=== PATIENT | female | born 1955 | race Caucasian/White ===

== ENCOUNTER 2017-01-12 05:13 | Day surgery (SDC) | payer OTHER ==
[~2017-01-12 05:13] MED LIST: ACET500CAP PO; ALLEGRA180 PO; BIAXIN5 PO; BUSPAR15 M1 PO; ENDOCET1 TAB PO; EYE PO; HALCION0.25 MG PO; HORMONE PELLET SC; KLONO5 PO; LAMICTAL10 PO; LAMICTAL150 MG PO; METHOC500B PO; NASACORTAQ NAS; OS500+D PO; OTC ALLERGY RELIEF PO; PROAIR HFA INH; RISP4 PO; TRAZ50 PO; XANAX1 MG PO
[2017-05-11] MEDS ORDERED: NEUR100 PO (11:02)
[2017-05-11] MEDS ORDERED: ULTRAM50 PO (11:03)
[2017-05-11] MEDS ORDERED: LIOR10 PO (11:03)
[2017-05-11] MEDS ORDERED: VITAMIN D31000 UNIT PO (11:03)
[2017-05-11] MEDS ORDERED: NASACORTAQ NAS (11:04)
== END 2017-01-12 11:22 | disposition home or self-care (01) ==
LOC: SDC 05:13
PROVIDERS: Orthopaedic Surgery
PROC: 3E0R33Z Introduction of Anti-inflammatory into Spinal Canal, Percutaneous Approach (ICD-10-PCS; 2017-01-12)
PROC: B01BYZZ Fluoroscopy of Spinal Cord using Other Contrast (ICD-10-PCS; 2017-01-12)
PROC: 3E0R3BZ Introduction of Anesthetic Agent into Spinal Canal, Percutaneous Approach (ICD-10-PCS; principal; 2017-01-12 07:45)
DX: M54.17 Radiculopathy, lumbosacral region (principal); Z88.0 Allergy status to penicillin; Z88.8 Allergy status to other drugs, medicaments and biological substances; Z79.899 Other long term (current) drug therapy; Z98.41 Cataract extraction status, right eye; Z98.42 Cataract extraction status, left eye; Z90.710 Acquired absence of both cervix and uterus; Z90.49 Acquired absence of other specified parts of digestive tract; Z98.890 Other specified postprocedural states
CPT/HCPCS: 77003; J1040; J2250; J3010; Q9967

== ENCOUNTER 2017-05-17 05:16 | Day surgery (SDC) | payer OTHER ==
[~2017-05-17] VITALS: Ht 149.9 cm; Wt 43.1 kg
[~2017-05-17 05:16] MED LIST changes: +LIOR10 PO; +NEUR100 PO; +ULTRAM50 PO; +VITAMIN D31000 UNIT PO
== END 2017-05-17 08:11 | disposition home or self-care (01) ==
LOC: SDC 05:16
PROVIDERS: Orthopaedic Surgery
PROC: 3E0R3BZ Introduction of Anesthetic Agent into Spinal Canal, Percutaneous Approach (ICD-10-PCS; 2017-05-17)
PROC: B01BZZZ Fluoroscopy of Spinal Cord (ICD-10-PCS; 2017-05-17)
PROC: 3E0R33Z Introduction of Anti-inflammatory into Spinal Canal, Percutaneous Approach (ICD-10-PCS; principal; 2017-05-17 07:15)
DX: M54.16 Radiculopathy, lumbar region (principal); F17.210 Nicotine dependence, cigarettes, uncomplicated; J44.9 Chronic obstructive pulmonary disease, unspecified; Z88.8 Allergy status to other drugs, medicaments and biological substances; Z79.899 Other long term (current) drug therapy; Z88.0 Allergy status to penicillin; Z90.49 Acquired absence of other specified parts of digestive tract; Z90.710 Acquired absence of both cervix and uterus; Z98.41 Cataract extraction status, right eye; Z98.42 Cataract extraction status, left eye; Z96.1 Presence of intraocular lens; Z98.890 Other specified postprocedural states
CPT/HCPCS: J1040; J2250; J3010; Q9967